=== PATIENT | female | born 1980 | race Caucasian/White ===

== ENCOUNTER 2018-06-01 15:45 | Emergency (ER) | payer MEDICAID, OTHER ==
[2018-06-01] MEDS: IBUPROFEN 600 MG TAB PO (16:29)
== END 2018-06-01 17:35 | disposition home or self-care (01) ==
LOC: FTE 15:45
DX: M25.511 Pain in right shoulder (principal); M54.9 Dorsalgia, unspecified; M25.521 Pain in right elbow; M54.2 Cervicalgia
CPT/HCPCS: 72040; 73030-RT; 73080-RT; 99284-25